=== PATIENT | female | born 1995 | race Caucasian/White ===

== ENCOUNTER 2024-08-20 13:08 | Emergency (ER) | payer OTHER, SELFPAY ==
[2024-08-20] VITALS (39 sets, daily range): BP systolic 82–111; BP diastolic 48–62; PULSE 66–84; RESP 10–23; TEMP 36.7–36.8; O2SAT 95–100; BMI 29.3
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
[2024-08-20] MEDS: MORPHINE 4 MG/ML INJ IV ×2 (13:32→13:58)
[2024-08-20] MEDS: BACITRACIN 28 GM OINT 1 APPLIC TOP ×2 (13:34→22:16)
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
[2024-08-20] MEDS: HYDROCODONE/ACET 5/325 TABLET 1 TAB PO (16:03)
[2024-08-20] MEDS: ONDANSETRON 4 MG ODT SL (16:29)
--- NOTE | 2024-08-20 18:28 | CM.MNRNOTE ---
After discharge, patient being wheeled out she became lightheaded, diaphoretic. Patient 89/55, 60BMP, DR Balderas called to patient side. patient provided with cool rag, juice and food. Improvement noted. 94/58. Monitoring patient for few minutes if continues to feel better will move forward with transport to car.
--- NOTE | 2024-08-20 18:30 | PC.NURSE ---
98/55. Patient continues to express improvement. Color improvement noted.
--- NOTE | 2024-08-20 18:51 | PC.NURSE ---
Patient became diaphoretic, I feel like I am going to pass out and vomit Blood pressure dropped to 70/34, Normal sinus 70's. Dr Santos brought to bedside. patient transferred back into bed.
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
[2024-08-20 19:14] LABS: INR 1.1 (0.9-1.3); Prothrombin Time 12.7 SECONDS (9.4-12.5)
[2024-08-20 19:18] LABS: Alanine Aminotransferase 32 IU/L (<35); Albumin 4.4 g/dL (3.5-5.0); Albumin Globulin Ratio 1.4 (1.0-2.8); Alkaline Phosphatase 76 U/L (38-126); Aspartate Aminotransferase 42 IU/L (14-36); Blood Urea Nitrogen 16 mg/dL (7-17); Calcium 9.1 mg/dL (8.4-10.2); Carbon Dioxide 20 mmol/L (22-32); Chloride 106 mmol/L (98-107); Estimated Glomerular Filt Rate > 60 mL/min (>60); Globulin 3.2 g/dL (1.7-4.1); Glucose 149 mg/dL (70-100); HEMOLYSIS < 15 (0-50); Potassium 4.2 mmol/L (3.4-5.1); Sodium 136 mmol/L (137-145); Total Protein 7.6 g/dL (6.3-8.2)
[2024-08-20 19:33] LABS: Add Manual Diff / Slide Review NO; Basophils Absolute Auto 0 /uL (0-100); Basophils Percent Auto 0.2 % (0-2); Eosinophils Absolute Auto 0 /uL (0-450); Hematocrit 41.8 % (36-46); Hemoglobin 13.9 g/dL (12.0-16.0); Lymphocytes Absolute Auto 1100 /uL (1100-4500); Lymphocytes Percent Auto 7.2 % (25-40); Mean Corpuscular HGB Conc 33.2 % (30-36); Mean Corpuscular Hemoglobin 28.1 PG (26-34); Mean Corpuscular Volume 84.7 fL (80-100); Monocytes Absolute Auto 1000 /uL (0-900); Monocytes Percent Auto 6.5 % (3-14); Neutrophils Absolute Auto 13600 /uL (1500-7000); Neutrophils Percent Auto 86.1 % (50-75); Platelet Count 211 X10^3/uL (150-400); Red Blood Cell Count 4.94 X10^6/uL (4.0-5.2); Red Cell Distribution Width 12.9 % (11.6-14.8); White Blood Cell Count 15.9 X10^3/uL (4.5-11.0)
[2024-08-20] MEDS: LACTATED RINGERS 1,000 ML 1000 ML IV ×2 (19:46→21:11)
[2024-08-20] MEDS: KETOROLAC 30 MG/ML VIAL 15 MG IV (21:11)
--- NOTE | 2024-08-20 22:57 | PC.NURSE ---
Patient tolerated transfer to wheelchair well, denies dizziness, lightheaded. Ready for discharge
== END 2024-08-20 23:15 | disposition home or self-care (01) ==
PROVIDERS: Emergency Provider Emergency Medicine
DX: S22.089A Unspecified fracture of T11-T12 vertebra, initial encounter for closed fracture (principal); S30.810A Abrasion of lower back and pelvis, initial encounter; S70.312A Abrasion, left thigh, initial encounter; S70.311A Abrasion, right thigh, initial encounter; S60.512A Abrasion of left hand, initial encounter; S60.511A Abrasion of right hand, initial encounter; I95.9 Hypotension, unspecified; V87.8XXA Person injured in other specified noncollision transport accidents involving motor vehicle (traffic), initial encounter
CPT/HCPCS: 71260; 72100; 74177; 80053; 85025; 85610; 86850; 86900; 86901; 96361; 96374; 96375; 99284; J1885; J2270; Q9967